=== PATIENT | male | born 1945 | race Caucasian/White ===

== ENCOUNTER 2018-11-08 10:02 | Outpatient (CLI) | payer MEDICARE, OTHER ==
--- NOTE | 2018-11-08 10:34 | RAD ---
EXAM: XR Foot Rt 3 View STANDARD PROVIDED CLINICAL HISTORY: Pain status post injury COMPARISON: None FINDINGS: Obliquely oriented minimally displaced fracture involving the distal fourth metatarsal shaft. Transve rsely oriented, minimally displaced fracture involving the fifth metatarsal neck. No additional fracture is evident. Alignment appears otherwise anatomic. Joint spaces appear preserved. IMPRESSION: Fourth and fifth metatarsal fractures as described.
== END 2018-11-08 10:03 | disposition home or self-care (01) ==
LOC: BICRAD 10:02
PROVIDERS: ATTEND Specialist
DX: M79.671 Pain in right foot (principal); S92.341A Displaced fracture of fourth metatarsal bone, right foot, initial encounter for closed fracture; S92.351A Displaced fracture of fifth metatarsal bone, right foot, initial encounter for closed fracture

== ENCOUNTER 2024-09-26 13:15 | Outpatient (CLI) | payer MEDICARE | END 2024-09-26 13:16 | disposition home or self-care (01) | LOC: PET 13:15 | PROVIDERS: ATTEND Internal Medicine Hematology & Oncology | DX: C43.8 Malignant melanoma of overlapping sites of skin (principal) | CPT/HCPCS: 78816; A9552 ==

== ENCOUNTER → 2024-12-12 | Day surgery (SDC) | payer MEDICARE | LOC: NM 07:37 | PROVIDERS: ATTEND Plastic Surgery | DX: C43.61 Malignant melanoma of right upper limb, including shoulder (principal) | CPT/HCPCS: 78195; A9541 ==